=== PATIENT | male | born 1980 | race Caucasian/White ===

== ENCOUNTER → 2018-07-14 06:56 | Outpatient (CLI) | payer OTHER, SELFPAY ==
--- NOTE | 2018-07-14 | DI.ECHO.S_ITS ---
[facility] +---------+ : : [address] : : : : [id number] : : : : Phone: [phone]+ Echocardiogram Report + + :Name: MARY ANNE BRAND Study Date: 07/14/2018 Height: 71 in : :[facility] Exam Location: [facility] Weight: 209 lb : : Gender: Male BSA: 2.1 m2 : :: 1980 Age: 38 yrs BP: 110/60 mmHg: :Reason For Study: Abnormal ECG : : Performed By: Diana Page : :Referring: GENE OSORIO : + + Interpretation Summary The left ventricle is normal in size, wall thickness, and systolic function without any focal wall motion abnormalities. The ejection fraction is estimated to be 55-60%. Diastolic parameters suggest probable normal left ventricular diastolic function and normal filling pressures. The right ventricle is normal in size and function. The right ventricular systolic pressure is estimated to be at least 15 mmHg based on an estimated right atrial pressure of 3 mm Hg. Both atria are mildly dilated. There is no significant valvular heart disease. The aortic root is normal size. Procedure: A two-dimensional transthoracic echocardiogram with color flow and Doppler was performed. The study quality was technically good. There is no prior echocardiogram noted for this patient. The patient was in sinus bradycardia with heart rates between 49-61 bpm during the exam. Left Ventricle: The left ventricle is normal in size, wall thickness, and systolic function without any focal wall motion abnormalities. The ejection fraction is estimated to be 55-60%. Diastolic parameters suggest probable normal left ventricular diastolic function and normal filling pressures. Right Ventricle: The right ventricle is normal in size and function. Atria: Both atria are mildly dilated. There is no Doppler evidence for an interatrial shunt. Mitral Valve: The mitral valve is normal in structure and function. There is trace mitral regurgitation. Aortic Valve: The aortic valve is trileaflet. The aortic valve opens well. No aortic regurgitation is present. Tricuspid Valve: The tricuspid valve is normal in structure and function. There is a trace or physiologic amount of tricuspid regurgitation. The right ventricular systolic pressure is estimated to be at least 15 mmHg based on an estimated right atrial pressure of 3 mm Hg. Pulmonic Valve: The pulmonic valve is not well seen, but is grossly normal. There is trace pulmonic regurgitation. There is no significant valvular heart disease. Great Vessels: The aortic root is normal size. The ascending aorta is normal in size. The pulmonary artery is not well visualized, but is probably normal size. The IVC is of normal diameter and collapses greater than 50% with a sniff. This suggests a low right atrial pressure of 3 mm Hg. Pericardium/ Pleura There is no pericardial effusion. There is no pleural effusion. MMode/2D Measurements & Calculations LVIDd: 5.3 cm LVOT diam: 2.4 cm LVIDs: 3.8 cm Ao root diam: 3.3 cm FS: 27.2 % asc Aorta Diam: 3.3 cm EPSS: 0.27 cm IVSd: 0.82 cm LVPWd: 0.80 cm LV kemp. diameter/BSA (cm/m^2): 2.4 LV sys. diameter/BSA (cm/m^2): 1.8 LA A2 area: 25.2 cm2 RA long axis: 5.4 cm LA A4 area: 24.8 cm2 RA area: 21.4 cm2 LA length (vol): 6.0 cm RA vol: 72.2 ml LA vol: 88.4 ml RA : 33.6 ml/m2 LA vol index: 41.1 ml/m2 IVC diam: 2.1 cm RVD1 (basal): 4.7 cm RVD2 (mid): 3.5 cm TAPSE: 2.6 cm Doppler Measurements & Calculations Ao V2 max: 119.7 cm/sec LVOT Max Bharathi: 89.0 cm/sec Ao V2 mean: 91.1 cm/sec LV V1 max P.2 mmHg Ao max P.7 mmHg LV V1 VTI: 19.2 cm Ao mean P.5 mmHg LORI(I,D): 3.5 cm2 Ao V2 VTI: 25.3 cm LORI(V,D): 3.5 cm2 sev ratio: 0.76 LORI indexed to BSA (cm^2/m^2): 1.7 MV E max bharathi: 79.1 cm/sec TR max bharathi: 174.9 cm/sec MV A max bharathi: 42.7 cm/sec TR max P.2 mmHg MV E/A: 1.9 PA V2 max: 82.0 cm/sec Med Peak E' Bharathi: 9.5 cm/sec PA V2 mean: 63.5 cm/sec E/E' med: 8.3 PA mean P.7 mmHg Lat Peak E' Bharathi: 16.3 cm/sec PA Accel Time: 0.14 sec E/E' lat: 4.9 E/e' average: 6.6 MV dec time: 0.29 sec MV P1/2t: 85.8 msec MV P1/2t max bharathi: 79.4 cm/sec SV(LVOT): 89.6 ml MVA(2t): 2.6 cm2 Reading Physician:05:33 PM
== END ==
PROVIDERS: Visit Provider Physician Assistant
DX: R94.31 Abnormal electrocardiogram [ECG] [EKG] (principal)
CPT/HCPCS: 93306

== ENCOUNTER → 2018-07-29 12:09 | Outpatient (CLI) | payer OTHER, SELFPAY ==
--- NOTE | 2018-07-29 | DI.RAD.S_ITS ---
PROCEDURE: XR FOOT RT MIN 3V INDICATIONS: RIGHT FOOT PAIN TECHNIQUE: 3 views of the foot were acquired. COMPARISON: None. FINDINGS: Bones: No fractures or dislocations. No definite periosteal thickening to suggest a stress reaction. No suspicious bony lesions. Soft tissues: No tibiotalar joint effusion. Achilles tendon appears normal. IMPRESSION: 1. No fracture or subluxation. 2. If there is clinical suspicion for stress reaction or stress fracture, further evaluation may be obtained with MRI. Dictated by: Aram Hernandez M.D. on 07/29/2018 at 14:46 Approved by: Aram Hernandez M.D. on 07/29/2018 at 14:46
== END ==
PROVIDERS: Visit Provider Physician Assistant
DX: M79.641 Pain in right hand (principal)
CPT/HCPCS: 73630

== ENCOUNTER → 2021-06-21 07:06 | Outpatient (CLI) | payer OTHER, SELFPAY ==
--- NOTE | 2021-06-21 | DI.MRI.S_ITS ---
PROCEDURE: MR KNEE RT WO CON INDICATIONS: RIGHT KNEE PAIN TECHNIQUE: Noncontrast sagittal PD fast spin echo and T2 fast spin echo with fat saturation, sagittal 3-D FLASH with fat saturation; coronal T1 spin echo and PD fast spin echo with fat saturation, and axial PD fast spin echo with fat saturation through the knee. COMPARISON: None. FINDINGS: Image quality: Excellent. Menisci: There is ill-defined linear oblique high T2 signal intensity within the medial meniscal body and posterior horn, demonstrating inferior articular surface extension, involving the peripheral 3rd and middle 3rd of the posterior horn medial meniscus. There is mild ill-defined T2 signal elevation at the posterior meniscal capsular junction of the posterior horn medial meniscus. There is mild detachment of the posterior horn medial meniscus. Lateral meniscus is intact. Cruciate ligaments: The anterior and posterior cruciate ligaments appear intact. Medial structures: The medial collateral ligament appears intact. Visualized portions of the pes anserinus tendons appear normal. No abnormal bursal fluid. Lateral structures: The lateral collateral ligament, long and short heads of the biceps femoris tendon appear intact. The popliteus tendon appears normal. Iliotibial band appears normal. Anterior structures: The quadriceps and patellar tendons appear intact. Patellar alignment is normal. No femoral trochlear dysplasia or ventral trochlear prominence. No edema in the infrapatellar fat pad. Bones and cartilage: No bone marrow contusions or fractures. Multiple intraosseous ganglia within the central tibial plateau. Mild diffuse articular cartilage loss overlies the weight-bearing aspects of the medial femoral condyle and medial tibial plateau. There is a full-thickness articular cartilage defect measuring 12 mm anteroposterior overlying the posterior nonweightbearing aspect of the lateral femoral condyle. Articular cartilage fibrillation overlies the patellar apex and medial patellar facet. Joint space: There is a small knee joint effusion and a small Gallo's cyst. Normal appearing synovial plicae are incidentally noted. IMPRESSION: 1. Tricompartmental osteoarthritis with associated articular cartilage loss. 2. Focal full-thickness articular cartilage defect overlying the lateral femoral condyle posteriorly. 3. Medial meniscal tearing with associated meniscal capsular junction injury. Detachment of the posterior horn medial meniscus. 4. Knee joint effusion and Gallo's cyst. Dictated by: Vinnie Martin M.D. on 06/21/2021 at 8:25 Approved by: Vinnie Martin M.D. on 06/21/2021 at 8:30
== END ==
PROVIDERS: PCP Student in an Organized Health Care Education/Training Program; Referring Provider Student in an Organized Health Care Education/Training Program; Visit Provider Student in an Organized Health Care Education/Training Program
DX: S83.241A Other tear of medial meniscus, current injury, right knee, initial encounter (principal); M25.561 Pain in right knee; M25.461 Effusion, right knee; M71.21 Synovial cyst of popliteal space [Baker], right knee; M17.11 Unilateral primary osteoarthritis, right knee
CPT/HCPCS: 73721

== ENCOUNTER → 2022-08-20 19:18 | Outpatient (CLI) | payer OTHER, SELFPAY ==
--- NOTE | 2022-08-20 | DI.MRI.S_ITS ---
PROCEDURE: MRFOOT LT WO CON INDICATIONS: PAIN IN LEFT TOE TECHNIQUE: Noncontrast sagittal T1 spin echo and T2 fast spin echo with fat saturation, long-axis T1 spin echo and T2 fast spin echo with fat saturation, short-axis T1 spin echo and T2 fast spin echo with fat saturation through the forefoot. COMPARISON: None. FINDINGS: Image quality: Excellent. Bones and joints: No bone marrow contusions or metatarsal stress fractures. Osteoarthritic changes are noted involving 1st MTP joint and 1st interphalangeal joint with significant joint space narrowing, subchondral sclerosis and mild edema in 1st metatarsal head. Subcortical cyst versus bony erosive changes involving medial cortex of 1st metatarsal head is also seen. No discrete fracture line. Marrow edema is also seen involving medial sesamoid of 1st metatarsal head without discrete fracture line. No evidence of metatarsal stress fractures. Soft tissues: Small amount of fluid within 1st MTP joint is noted. The visualized plantar foot muscles demonstrate normal signal and bulk. Visualized flexor and extensor tendons appear intact, without tenosynovitis. The distal insertions of the peroneus brevis and longus tendons appear intact. The principal Lisfranc ligament appears intact. No soft tissue ganglion cysts or bursal fluid collections. Sagittal images demonstrate no evidence for plantar plate tears. IMPRESSION: 1. 1st MTP joint and 1st interphalangeal joint osteoarthritis as above. No acute fracture or dislocation. 2. Osteoarthritic changes involving articulation between 1st metatarsal head and sesamoid bones. Marrow edema involving medial sesamoid of 1st metatarsal head without fracture line concerning for mild medial sesamoiditis. Small amount of fluid is also seen distending 1st MTP joint capsule. 3. Subcortical cystic areas involving medial and distal portion of 1st metatarsal head, likely represent changes secondary to osteoarthritis. Erosion from inflammatory arthropathy cannot be excluded. 4. Tendons and ligaments of midfoot and forefoot are grossly intact. Dictated by: Boom Murray M.D. on 08/21/2022 at 10:49 Approved by: Boom Murray M.D. on 08/21/2022 at 11:53
== END ==
PROVIDERS: PCP Student in an Organized Health Care Education/Training Program; Referring Provider Orthopaedic Surgery; Visit Provider Orthopaedic Surgery
DX: M19.072 Primary osteoarthritis, left ankle and foot (principal); M79.675 Pain in left toe(s)
CPT/HCPCS: 73718

== ENCOUNTER → 2022-09-13 15:08 | Outpatient (CLI) | payer OTHER, SELFPAY ==
[2022-09-13 15:27] LABS: Semen Sperm Prescence Post-Vas Present (ABSENT)
== END ==
PROVIDERS: PCP Student in an Organized Health Care Education/Training Program; Referring Provider Specialist; Visit Provider Specialist
DX: Z98.52 Vasectomy status (principal)
CPT/HCPCS: 89321

== ENCOUNTER → 2023-02-07 10:22 | Outpatient (CLI) | payer OTHER, SELFPAY ==
[2023-02-07 10:59] LABS: Semen Sperm Prescence Post-Vas Absent (ABSENT)
== END ==
PROVIDERS: PCP Student in an Organized Health Care Education/Training Program; Referring Provider Specialist; Visit Provider Specialist
DX: Z98.52 Vasectomy status (principal)
CPT/HCPCS: 89321

== ENCOUNTER 2023-02-14 10:30 | Emergency (ER) | payer OTHER, SELFPAY ==
[2023-02-14 10:43] VITALS: BP 136/84; PULSE 60; RESP 14; TEMP 36.2; O2SAT 100; BMI 27.8
--- NOTE | 2023-02-14 10:45 | DI.RAD.S_ITS ---
PROCEDURE: XR SHOULDER RT MIN 2V INDICATIONS: shoulder injury TECHNIQUE: 3 views of the shoulder were acquired. COMPARISON: None. FINDINGS: Bones: A corticated bone fragment is noted within the slightly widened acromioclavicular joint. No other findings to suggest fracture or dislocation. Soft tissues: No suspicious soft tissue calcifications. IMPRESSION: Corticated bone fragment within the widened acromioclavicular joint space. Differential considerations include acute fracture/ligamentous injury versus chronic degenerative change. Please correlate with physical exam findings and point tenderness in this region. Dictated by: Shirley Damico M.D. on 02/14/2023 at 11:26 Approved by: Shirley Damico M.D. on 02/14/2023 at 11:28
--- NOTE | 2023-02-14 11:37 | ED_ITS ---
HPI - Fall General Chief Complaint: Fall Stated Complaint: rt shoulder injury Time Seen by Provider: 02/14/23 11:37 Source: patient Mode of arrival: Ambulatory History of Present Illness HPI Narrative: Patient is a healthy 42-year-old male who presents today with right shoulder pain. He states that he was wrestling with friends last night when he fell on his right shoulder. He has pretty extensive pain. No numbness tingling or weakness. Denies any headache or other injury although his ribs are slightly sore as well. He is predominantly left handed. 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 Related Data Previous Rx's Medication Instructions Recorded sulfamethoxazole 400 1 tab PO BID #14 tabs 04/17/22 mg-trimethoprim 80 mg tablet (Bactrim) hydrocodone 5 mg-acetaminophen 325 1 tab PO Q6H PRN pain #10 tabs 02/14/23 mg tablet Allergies Allergy/AdvReac Type Severity Reaction Status Date / Time Penicillins Allergy Intermediate rash Verified 02/14/23 10:43 Patient History Medical History Encounter for sterilization Sterilization consult Surgical History History of hernia repair Social History marital status: number of children: 3 Smoking Status: Never smoker Type(s) of exercise: other frequency: decline to answer Smoking Status: Never smoker alcohol intake frequency: holidays/special occasions only Substance Use Type: does not use Exam Initial Vital Signs Initial Vital Signs: Vital Signs Temperature 97.1 F L 02/14/23 10:43 Pulse Rate 60 02/14/23 10:43 Respiratory Rate 14 02/14/23 10:43 Blood Pressure 136/84 02/14/23 10:43 Pulse Oximetry 100 02/14/23 10:43 Oxygen Delivery Method Room Air 02/14/23 10:43 GENERAL: Alert pleasant well-appearing 42-year-old male NECK: No vertebral tenderness no step-offs HEAD: Atraumatic no depressions or crepitation CARDIOVASCULAR: peripheral pulses in tact, cap refill <2 sec RESPIRATORY: No respiratory distress, speaks in full sentences without difficulty EXTREMITIES: Normal range of motion, no clubbing or edema. Neurovascularly intact Right upper extremities step-off at distal clavicle no clavicle step-offs distal radial pulse intact decreased range of motion secondary to pain. NEUROLOGICAL: Cranial nerves II through XII grossly intact. Normal gait and speech. SKIN: Warm, dry, no petechiae, no rashes or lesions. Course Orders Ordered: ED Orders 02/14/23 10:45 XR shoulder RT min 2V Stat Vital Signs Vital signs: Vital Signs - 8 hr 02/14/23 10:43 Temperature 97.1 F L Pulse Rate 60 Respiratory Rate 14 Blood Pressure 136/84 Pulse Oximetry 100 Oxygen Delivery Method Room Air MDM - Fall Imaging Data Extremity x-ray #1: Radiologist's Impression: PROCEDURE: XR SHOULDER RT MIN 2V INDICATIONS: shoulder injury TECHNIQUE: 3 views of the shoulder were acquired. COMPARISON: None. FINDINGS: Bones: A corticated bone fragment is noted within the slightly widened acromioclavicular joint. No other findings to suggest fracture or dislocation. Soft tissues: No suspicious soft tissue calcifications. IMPRESSION: Corticated bone fragment within the widened acromioclavicular joint space. Di fferential considerations include acute fracture/ligamentous injury versus chronic degenerative change. Please correlate with physical exam findings and point tenderness in this region. Dictated by: Shirley Damico M.D. on 02/14/2023 at 11:26 MDM Narrative Medical decision making narrative: Patient healthy 42-year-old male who presents today with right shoulder pain. X-ray shows possible bone fragment in acromioclavicular joint space. He is quite tender with decreased range of motion on exam. He is given sling and pain control. Recommend outpatient follow-up and supportive care only. At this time no other injury or need for further workup. My require repeat x-ray or MRI as outpatient. Discharge Plan Departure Patient Disposition: Home Clinical Impression: Injury of right shoulder Instructions: Shoulder Sprain Activity Restrictions/Additional Instructions: *You have been diagnosed with right shoulder sprain *What to do: At this time as possible you have a ligament injury versus of very small fracture. Recommend wearing sling as needed. I do recommend repeat x-ray in about 7-10 days if still having significant pain may require MRI. Ice 20-30 minutes at a time if needed *Continue to take medications as directed [place] 1 tablet every 6 hours if needed for severe pain--> Sent to [facility] Motrin 600 mg every 6 hours if needed for [id number] pain *Follow up with your primary care provider in 2-3 days or call [phone] *Return to ER if you should have increasing pain numbness tingling weakness or any new, worsening or concerning symptoms CONTROLLED SUBSTANCE DISCHARGE (Narcotoic/benzodiazepine/Flexeril/Phenergan) 1. You have been prescribed narcotic medications, it does have acetaminophen/Tylenol/paracetamol in it, DO NOT TAKE MORE THAN 4,00mg in 24 hours of Tylenol. TRAMADOL DOES NOT CONTAIN TYLENOL 2. Please understand that we cannot provide further refills of narcotics, benzodiazepines or controlled substances through the ED and her pain management will need to be through your provider. 3. While on these medications you cannot drive or operate heavy machinery. 4. You cannot sign legal documents or perform any duties such as this. 5. As long as you're taking opiate pain medications he should also be taking a stool softener such as Colace, Dulcolax, MiraLAX or prune juice, to help avoid constipation. Prescriptions: New hydrocodone-acetaminophen 5-325 mg tablet 1 tab PO Q6H PRN (Reason: pain) Qty: 10 0RF No Action sulfamethoxazole-trimethoprim [Bactrim] 400-80 mg tablet 1 tab PO BID Qty: 14 0RF Referrals: Harinder Triplett [Primary Care Provider] - Stand Alone Forms: Patient Portal/API
== END 2023-02-14 12:01 | disposition home or self-care (01) ==
PROVIDERS: Emergency Provider Emergency Medicine; PCP Student in an Organized Health Care Education/Training Program
DX: S49.91XA Unspecified injury of right shoulder and upper arm, initial encounter (principal); W19.XXXA Unspecified fall, initial encounter; Y93.72 Activity, wrestling
CPT/HCPCS: 73030; 99282; 99283

== ENCOUNTER → 2024-05-26 19:16 | Outpatient (CLI) | payer OTHER, SELFPAY ==
--- NOTE | 2024-05-26 19:19 | DI.MRI.S_ITS ---
PROCEDURE: MR SHOULDER LT WO CON INDICATIONS: LEFT SHOULDER PAIN TECHNIQUE: Noncontrast oblique coronal T2 fast spin echo with fat saturation, oblique sagittal T1 spin echo and T2 fast spin echo with fat saturation, axial T1 spin echo and T2 fast spin echo with fat saturation through the shoulder. COMPARISON: [facility], CR, XR SHOULDER 2+ VIEWS RIGHT, 12/17/2023, 9:51. FINDINGS: Image quality: Excellent. Rotator cuff: In the supraspinatus, there is focal, full-thickness tear at the mid footprint (7:6). There is additional low grade, articular sided tear at the critical zone of the junction supraspinatus infraspinatus (07:10). The teres minor is unremarkable. Low-grade interstitial tear of the subscapularis. No fatty atrophy or muscle edema. Bones and bursae: Moderate degenerative changes of the acromioclavicular joint. Type 2 acromion. No os acromiale. Trace subacromial/subdeltoid bursitis. Mild subchondral cystic changes in the posterior greater tuberosity, reactive. There is a 9 mm, mildly lobulated, T2 hyperintense lesion with internal punctate T2 hypointensity in the posterior humeral head, without surrounding marrow edema, favoring to represent a low-grade chondroid lesion (09:16). No acute fracture. No focal chondral defect of the glenohumeral articulation. Capsule and soft tissues: Superior labral tear, extending anteriorly to the anterior labrum. No paralabral cyst. Mild tenosynovitis of the extra-articular biceps tendon, without tear. The intra-articular biceps tendon is unremarkable. Trace glenohumeral effusion. No intra-articular body. IMPRESSION: 1. Moderate degenerative changes of the acromioclavicular joint. 2. 9 mm low-grade chondroid lesion in the humeral head. 3. Focal full-thickness at the mid footprint of the supraspinatus. 4. Additional low-grade tear at the junction of the supraspinatus and infraspinatus. 5. Low-grade tear of the subscapularis. 6. Labral tear. Dictated by: Lillian Benedict M.D. on 05/27/2024 at 9:57 Approved by: Lillian Benedict M.D. on 05/27/2024 at 10:10
== END ==
PROVIDERS: PCP Student in an Organized Health Care Education/Training Program; Referring Provider Preventive Medicine Aerospace Medicine; Visit Provider Preventive Medicine Aerospace Medicine
DX: M25.512 Pain in left shoulder (principal); M19.012 Primary osteoarthritis, left shoulder; M25.812 Other specified joint disorders, left shoulder; M75.122 Complete rotator cuff tear or rupture of left shoulder, not specified as traumatic; S43.432A Superior glenoid labrum lesion of left shoulder, initial encounter
CPT/HCPCS: 73221

== ENCOUNTER → 2024-12-12 | Outpatient (CLI) | payer OTHER, SELFPAY ==
--- NOTE | 2024-12-12 16:01 | DI.MRI.S_ITS ---
PROCEDURE: MR KNEE RT WO CON INDICATIONS: pain TECHNIQUE: Noncontrast sagittal PD fast spin echo and T2 fast spin echo with fat saturation, sagittal 3-D FLASH with fat saturation; coronal T1 spin echo and PD fast spin echo with fat saturation, and axial PD fast spin echo with fat saturation through the knee. COMPARISON: [facility], CR, XR KNEE ARTHRITIC SERIES RT, 01/21/2023, 8:18. [facility], MR, MR KNEE RT WO CON, 06/21/2021, 7:15. FINDINGS: Image quality: Excellent. Menisci: The medial meniscus is intact. Complex tear involving anterior body of lateral meniscus extending to both superior and inferior articulating surfaces. Cruciate ligaments: The anterior and posterior cruciate ligaments appear intact. Medial structures: The medial collateral ligament appears thickened with surrounding soft tissue edema and intrasubstance T2 hyperintense signal. Visualized portions of the pes anserinus tendons appear normal. No abnormal bursal fluid. Lateral structures: The lateral collateral ligament, long and short heads of the biceps femoris tendon appear intact. The popliteus tendon appears intact. Iliotibial band appears normal. Anterior structures: The quadriceps and patellar tendons appear intact. Patellar alignment is normal. Bones and cartilage: Extensive marrow edema and subcortical cystic changes involving lateral tibial plateau extending to base of tibial spine near ACL insertion. Moderate grade overlying chondromalacia is seen. Focal area of moderate to high-grade cartilage defect involving weight-bearing portion of medial femoral condyle measures 0.9 x 1.3 x 0.2 cm in size. [id number] tricompartmental osteoarthritis is also seen more notably in medial and lateral femoral tibial compartments. Low-grade chondromalacia involving apex of patella cartilage. Joint space: There is moderate knee joint fluid. There is a Gallo's cyst measures 2.3 x 3 x 5.8 cm in size with suggestion of small oval loose bodies in its dependent portion measures up to 6 mm in size. Normal appearing synovial plicae are incidentally noted. IMPRESSION: 1. Moderate osteoarthritis and moderate to high-grade chondromalacia in medial and lateral femoral tibial compartments as described above. No acute fracture or dislocation. Low-grade chondromalacia also seen in apex of patella cartilage. 2. Moderate joint effusion and Gallo's cyst as above. Suggestion of sub cm loose bodies seen in dependent portion of Gallo's cyst as above. 3. Complex tear involving body of lateral meniscus extending to both superior and inferior articulating surfaces. No medial meniscal tear. 4. The cruciate ligaments are intact. 5. Low to moderate grade intrasubstance partial-thickness tear involving medial collateral ligament. Dictated by: Boom Murray M.D. on 12/14/2024 at 11:11 Approved by: Boom Murray M.D. on 12/14/2024 at 11:24
== END ==
PROVIDERS: Referring Provider Student in an Organized Health Care Education/Training Program; Visit Provider Student in an Organized Health Care Education/Training Program
DX: S83.231A Complex tear of medial meniscus, current injury, right knee, initial encounter (principal); S83.411A Sprain of medial collateral ligament of right knee, initial encounter; M17.11 Unilateral primary osteoarthritis, right knee; M22.41 Chondromalacia patellae, right knee; M25.461 Effusion, right knee; M25.561 Pain in right knee; M71.21 Synovial cyst of popliteal space [Baker], right knee
CPT/HCPCS: 73721

== ENCOUNTER → 2024-12-23 16:56 | Outpatient (CLI) | payer OTHER, SELFPAY ==
--- NOTE | 2024-12-23 16:57 | DI.MRI.S_ITS ---
PROCEDURE: MR KNEE LT WO CON INDICATIONS: PAIN - left knee TECHNIQUE: Noncontrast sagittal PD fast spin echo and T2 fast spin echo with fat saturation, sagittal 3-D FLASH with fat saturation; coronal T1 spin echo and PD fast spin echo with fat saturation, and axial PD fast spin echo with fat saturation through the knee. COMPARISON: [facility], CR, XR KNEE ARTHRITIC SERIES RT, 01/21/2023, 8:18. FINDINGS: Image quality: Excellent. Anterior cruciate ligament: Intact. Posterior cruciate ligament: Intact. Medial collateral ligament: Mild thickening of the proximal medial collateral ligament without surrounding edema is consistent with remote prior low-grade sprain. Lateral collateral ligament: Intact. Medial meniscus: Intact. Lateral meniscus: Intact. Medial and lateral tendons: The semimembranosus tendon insertions appear intact. Visualized portions of the pes anserinus tendons appear normal. The popliteus tendon is intact. Iliotibial band appears normal. Anterior structures: Mild patella jamey. Mild proximal patellar tendinosis. Distal quadriceps tendon is intact. No patellar subluxation. No femoral trochlear dysplasia or ventral trochlear prominence. Mild focal edema at the superolateral aspect of the infrapatellar fat pad. Bones: No bone marrow contusions or fractures. Medial femorotibial cartilage: No focal cartilage defect. Lateral femorotibial cartilage: No focal cartilage defect. Patellofemoral cartilage: Mild surface cartilage irregularity and shallow cartilage fissuring at the medial patellar facet and median ridge and the trochlear groove. Soft tissues: No significant joint effusion. Small medial popliteal cyst. Small amount of fluid is seen tracking along the popliteus tendon sheath. The visualized musculature is age-appropriate in bulk. IMPRESSION: 1. Mild patella jamey. Mild edema is seen at the superolateral aspect of the infrapatellar fat pad, which can be seen in the setting of lateral femoral condyle-patellar tendon friction syndrome. 2. Mild proximal patellar tendinosis. 3. Grade 2 chondromalacia in the patellofemoral compartment. 4. Remote prior low-grade sprain of the proximal medial collateral ligament. 5. Cruciate ligaments are intact. No acute trabecular bone injury. No meniscal tear. 6. Small medial popliteal cyst. Approved by: Cory Scott M.D. on 12/24/2024 at 9:10
== END ==
PROVIDERS: Referring Provider Student in an Organized Health Care Education/Training Program; Visit Provider Student in an Organized Health Care Education/Training Program
DX: S83.412A Sprain of medial collateral ligament of left knee, initial encounter (principal); M22.42 Chondromalacia patellae, left knee; M71.22 Synovial cyst of popliteal space [Baker], left knee; M25.562 Pain in left knee; R60.0 Localized edema
CPT/HCPCS: 73721

== ENCOUNTER → 2025-01-05 15:55 | Outpatient (CLI) | payer OTHER, SELFPAY ==
--- NOTE | 2025-01-05 15:56 | DI.MRI.S_ITS ---
PROCEDURE: MR SHOULDER RT WO CON
== END ==
LOC: MRI 15:55
PROVIDERS: Referring Provider Student in an Organized Health Care Education/Training Program; Visit Provider Student in an Organized Health Care Education/Training Program
DX: M75.111 Incomplete rotator cuff tear or rupture of right shoulder, not specified as traumatic (principal); M25.511 Pain in right shoulder
CPT/HCPCS: 73221

== ENCOUNTER → 2025-03-01 18:57 | Outpatient (CLI) | payer OTHER, SELFPAY ==
--- NOTE | 2025-03-01 18:58 | DI.MRI.S_ITS ---
PROCEDURE: MR CERVICAL SPINE WO CON INDICATIONS: Cervicalgia TECHNIQUE: Noncontrast sagittal T1 spin echo and T2 fast spin echo, sagittal STIR, foraminal oblique sagittal T2 fast spin echo, and axial gradient echo or T2 fast spin echo through the cervical spine. COMPARISON: None. FINDINGS: Image quality: Excellent. Alignment and Curvature: There is normal bony alignment. Bone Marrow: Marrow demonstrates normal overall signal. Spinal Cord: Visualized spinal cord has normal size and signal. No cerebellar tonsillar herniation. Paraspinous Soft Tissues: No paravertebral masses. Prevertebral soft tissues are normal in thickness. C2-C3: Normal appearance. C3-C4: Mild disc height loss. Diffuse posterior disc post osteophyte mildly flattens the ventral cord. Borderline canal stenosis. AP diameter of the central canal is 9.8 mm. Bilateral uncovertebral joint hypertrophy. Moderate to severe bilateral foraminal narrowing, left greater than right, with a degree of bilateral foraminal C4 nerve root impingement, left greater than right. C4-C5: No canal stenosis. Mild bilateral facet hypertrophy. No significant right foraminal narrowing. Moderate left foraminal narrowing with flattening deformity on the exiting left C5 nerve root. C5-C6: Mild disc height loss. Posterior disc post osteophyte. Mild canal stenosis. AP diameter of the central canal is 9.1 mm. Reference axial image 30 of series 3. Bilateral uncovertebral joint hypertrophy, right greater than left. Moderate to severe right foraminal narrowing with a degree of right foraminal C6 nerve root impingement. Moderate left foraminal narrowing. C6-C7: Left facet hypertrophy. No canal stenosis or significant foraminal stenosis. C7-T1: No canal stenosis or foraminal stenosis. IMPRESSION: 1. Diffuse spondylitic changes described above. 2. At C3-C4, disc osteophyte complex mildly flattens the ventral cord. There is borderline canal stenosis. There is mild canal stenosis at C5-C6. 3. Significant multilevel foraminal narrowing as described above with multilevel foraminal nerve root impingement. This occurs bilaterally at C3-C4 and on the right at C5-C6. Dictated by: Chu Winn M.D. on 03/02/2025 at 10:23 Approved by: Chu Winn M.D. on 03/02/2025 at 10:29
== END ==
PROVIDERS: Referring Provider Preventive Medicine Aerospace Medicine; Visit Provider Preventive Medicine Aerospace Medicine
DX: M47.812 Spondylosis without myelopathy or radiculopathy, cervical region (principal); M48.02 Spinal stenosis, cervical region; M54.2 Cervicalgia
CPT/HCPCS: 72141